=== PATIENT | male | born 1960 | race Hispanic/Latino ===

== ENCOUNTER → 2023-08-07 | Emergency (ER) | payer OTHER ==
[2023-08-07 19:03] LABS: Absolute Lymphocytes (CBC) 1.5 K/uL (0.7-4.9); Hematocrit 28.6 % (39.6-49.0); MCV 89.1 fL (80-100); MPV 7.9 fL (7.6-11.3); Platelets 226 thou/uL (152-406); RBC Red Blood Cell Count 3.21 M/uL (4.33-5.43)
[2023-08-07 19:22] LABS: Protime INR 1.17
[2023-08-07 19:33] LABS: Albumin 2.7 g/dL (3.4-5.0); Bilirubin Direct 0.2 mg/dL (0-0.2); Bilirubin Indirect, Calculated 0.5 mg/dL (0.2-0.8); Bilirubin Total 0.7 mg/dL (0.2-1.0); Magnesium 2.7 mg/dL (1.6-2.4); Potassium 3.7 mEq/L (3.5-5.1); Protein, Total 8.5 g/dL (6.4-8.2); Troponin High Sensitivity 13.5 pg/mL (<58.9)
--- NOTE | 2023-08-07 19:38 | EDPHYS ---
Physician Documentation [facility] Name: Lewis Sen Age: 63 yrs Sex: Male : 1960 Arrival Date: 08/07/2023 Time: 18:30 Bed 6 Private MD: ED Physician Srinivasan Avila HPI: 08/07 19:27 This 63 yrs old Male presents to ER via EMS with complaints of Hand to chest x sp3 1. 19:27 63-year-old male with history of prior CVA, diabetes, GERD presents via EMS from the [facility] retirement for him clutching his chest x 1 after his tube feed. Patient is no longer having these behaviors. Patient is nonverbal and therefore history, physical and ROS are severely limited. No reports of respiratory distress, new weakness, or any other strange behaviors reported by EMS or reported by staff to EMS.. - Immunization history:: Adult Immunizations up to date. - Social history:: Smoking status: Patient denies any tobacco usage or history of. Patient/guardian denies using alcohol. ROS: 19:29 Unable to obtain ROS due to baseline dementia, patient's inability to understand sp3 questions, Exam: 19:29 Constitutional: This is a well developed, well nourished patient who is awake, alert, sp3 and in no acute distress. Head/Face: Normocephalic, atraumatic. Eyes: Pupils equal round and reactive to light, extra-ocular motions intact. Lids and lashes normal. Conjunctiva and sclera are non-icteric and not injected. Cornea within normal limits. Periorbital areas with no swelling, redness, or edema. Neck: Trachea midline, no thyromegaly or masses palpated, and no cervical lymphadenopathy. Supple, full range of motion without nuchal rigidity, or vertebral point tenderness. No Meningismus. Chest/axilla: Normal chest wall appearance and motion. Nontender with no deformity. No lesions are appreciated. Cardiovascular: Regular rate and rhythm with a normal S1 and S2. No gallops, murmurs, or rubs. Normal PMI, no JVD. No pulse deficits. Respiratory: Lungs have equal breath sounds bilaterally, clear to auscultation and percussion. No rales, rhonchi or wheezes noted. No increased work of breathing, no retractions or nasal flaring. Abdomen/GI: Soft, non-tender, with normal bowel sounds. No distension or tympany. No guarding or rebound. No evidence of tenderness throughout. MS/ Extremity: Pulses equal, no cyanosis. Neurovascular intact. Full, normal range of motion. 19:29 Neuro: Chronic left-sided deficits. Very limited exam., 19:30 ECG was reviewed by the Attending Physician. EKG demonstrates normal sinus rhythm at 74 sp3 bpm with normal intervals except QTc at 461, normal axis, normal QRS, normal axis ST segments without evidence of acute ischemia. Vital Signs: 18:44 BP 148 / 78; Pulse 74; Resp 15; Temp 98; Pulse Ox 98% on 2 lpm NC; ko1 18:50 BP 130 / 73; Pulse 76; Resp 19; Pulse Ox 99% on 3 lpm NC; ld1 20:00 BP 139 / 82; Pulse 76; Resp 12 S; Pulse Ox 100% on 2 lpm NC; jw7 21:00 BP 122 / 78; Pulse 55; Resp 13 S; Pulse Ox 98% on 2 lpm NC; jw7 22:00 BP 137 / 83; Pulse 57; Resp 13 S; Pulse Ox 99% on 2 lpm NC; jw7 23:00 BP 133 / 66; Pulse 73; Resp 14 S; Pulse Ox 99% on R/A; jw7 MDM: 18:44 Patient medically screened. sp3 19:29 Data reviewed: vital signs, nurses notes, EMS record, old medical records, lab test sp3 result(s), EKG, radiologic studies. 19:30 ED course: 63-year-old male with 1 episode of his hand touching his chest at the sp3 retirement now currently resting in no acute distress with nonconcerning EKG. I am not highly suspicious for acute coronary syndrome and if laboratory values are within normal limits, we will safely discharge him home.. 19:36 ED course: Creatinine of 5.9 consistent with stage IV severe kidney disease. Hemoglobin sp3 9.9. No critical laboratory values noted. Troponin is negative. At this time we will discharge patient home to retirement.. 08/07 18:41 Order name: Basic Metabolic Panel; Complete Time: 19:34 sp3 08/07 18:41 Order name: CBC with Diff; Complete Time: 19:27 sp3 08/07 18:41 Order name: LFT's; Complete Time: 19:34 sp3 08/07 18:41 Order name: Magnesium; Complete Time: 19:34 sp3 08/07 18:41 Order name: NT PRO-BNP; Complete Time: 19:34 sp3 08/07 18:41 Order name: PT-INR; Complete Time: 19:27 sp3 08/07 18:41 Order name: Troponin HS; Complete Time: 19:34 sp3 08/07 18:41 Order name: XRAY Chest (1 view); Complete Time: 19:48 sp3 08/07 18:41 Order name: EKG; Complete Time: 18:41 sp3 08/07 18:41 Order name: Cardiac monitoring; Complete Time: 18:49 sp3 08/07 18:41 Order name: EKG - Nurse/Tech; Complete Time: 18:49 sp3 08/07 18:41 Order name: IV Saline Lock; Complete Time: 18:49 sp3 08/07 18:41 Order name: Labs collected and sent; Complete Time: 19:02 sp3 08/07 18:41 Order name: O2 Per Protocol; Complete Time: 18:41 sp3 08/07 18:41 Order name: O2 Sat Monitoring; Complete Time: 18:41 sp3 Administered Medications: No medications were administered Disposition Summary: 08/07/23 19:37 Discharge Ordered Notes: Location: Home sp3 Condition: Stable sp3 Diagnosis - Evaluation for hand to chest possible chest pain equivalent sp3 Followup: sp3 - With: Private Physician - When: Upon discharge from the Emergency Department - Reason: Continuance of care Discharge Instructions: - Discharge Summary Sheet sp3 - Chronic Kidney Disease, Adult sp3 Forms: - Medication Reconciliation Form sp3 - Thank You Letter sp3 - Antibiotic Education sp3 - Prescription Opioid Use sp3 - Patient Portal Instructions sp3 - Leadership Thank You Letter sp3 Signatures: Dispatcher [employer] Leia Kenney RN RN ld1 Srinivasan Avila MD MD sp3
--- NOTE | 2023-08-07 19:38 | ER ---
Nurse's Notes [facility] Name: Lewis Sen Age: 63 yrs Sex: Male : 1960 Arrival Date: 08/07/2023 Time: 18:30 Bed 6 Private MD: Diagnosis: Evaluation for hand to chest possible chest pain equivalent Presentation: 08/07 18:44 Chief complaint: EMS states: called by [facility] due to patient complaining of chest ko1 burning x 1 hour. Coronavirus screen: At this time, the client does not indicate any symptoms associated with coronavirus-19. Ebola Screen: No symptoms or risks identified at this time. Initial Sepsis Screen: Does the patient meet any 2 criteria? No. Patient's initial sepsis screen is negative. Does the patient have a suspected source of infection? No. Patient's initial sepsis screen is negative. Risk Assessment: Do you want to hurt yourself or someone else? Patient reports no desire to harm self or others. Onset of symptoms was August 07, 2023. Care prior to arrival: Medication(s) given: ASA, 81 mg, x 4, zofran 8 mg, IV initiated. 20 GA, in the right hand. 18:44 Method Of Arrival: EMS: [facility] ko1 18:44 Acuity: RUPAL 3 ko1 Triage Assessment: 18:44 General: Appears in no apparent distress. Behavior is calm, cooperative, appropriate ko1 for age. Pain: Complains of pain in chest. - Immunization history:: Adult Immunizations up to date. - Social history:: Smoking status: Patient denies any tobacco usage or history of. Patient/guardian denies using alcohol. Screenin:[facility] ED Fall Risk Assessment (Adult) History of falling in the last 3 months, ko1 including since admission No falls in past 3 months (0 pts) Confusion or Disorientation No (0 pts) Intoxicated or Sedated No (0 pts) Impaired Gait Yes (1 pt) Mobility Assist Device Used Yes (1 pt) Altered Elimination Yes (1 pt) Score/Fall Risk Level 3 or more points = High Risk Oriented to surroundings, Maintained a safe environment, Educated pt \T\ family on fall prevention, incl call for assistance when getting out of bed, Assessed \T\ reinforced patient's understanding of fall precautions, Provided non-skid footwear, Hourly rounding (assess needs \T\ fall precautionary measures) done, Used ambulatory aids as needed (educated on \T\ assisted with), Used gait belt as appropriate Remained w/in arm's length of patient and in sight while toileting, Offered frequent toileting (1:1 observation), Remained with patient while ambulating, Utilized family, sitter, or virtual meal room hand as indicated. Abuse screen: Denies threats or abuse. Denies injuries from another. Nutritional screening: No deficits noted. Tuberculosis screening: No symptoms or risk factors identified. Assessment: 18:57 Neuro: Level of Consciousness is awake, alert, obeys commands, left side flaccid from ko1 previous cva. Cardiovascular: Reports chest pain. Respiratory: No deficits noted. GI: PEG tube in place, clamped. Site clean. : Eldridge in place to gravity drainage. EENT: Oral mucosa is dry. Derm: No deficits noted. Musculoskeletal: Range of motion: limited in left side. 20:00 Reassessment: Patient appears in no apparent distress at this time. No changes from jw7 previously documented assessment. Patient and/or family updated on plan of care and expected duration. Pain level reassessed. 20:00 General: Attempted to call [facility] to arrange transport of patient, report jw7 given to Rae [facility] RN. . 20:00 General: Discharge pending transport to [facility]. jw7 21:00 Reassessment: Patient appears in no apparent distress at this time. No changes from jw7 previously documented assessment. Patient and/or family updated on plan of care and expected duration. Pain level reassessed. 22:00 Reassessment: Patient appears in no apparent distress at this time. No changes from jw7 previously documented assessment. Patient and/or family updated on plan of care and expected duration. Pain level reassessed. 23:18 Reassessment: Patient appears in no apparent distress at this time. No changes from jw7 previously documented assessment. Patient and/or family updated on plan of care and expected duration. Pain level reassessed. Vital Signs: 18:44 BP 148 / 78; Pulse 74; Resp 15; Temp 98; Pulse Ox 98% on 2 lpm NC; ko1 18:50 BP 130 / 73; Pulse 76; Resp 19; Pulse Ox 99% on 3 lpm NC; ld1 20:00 BP 139 / 82; Pulse 76; Resp 12 S; Pulse Ox 100% on 2 lpm NC; jw7 21:00 BP 122 / 78; Pulse 55; Resp 13 S; Pulse Ox 98% on 2 lpm NC; jw7 22:00 BP 137 / 83; Pulse 57; Resp 13 S; Pulse Ox 99% on 2 lpm NC; jw7 23:00 BP 133 / 66; Pulse 73; Resp 14 S; Pulse Ox 99% on R/A; jw7 ED Course: 18:40 Patient arrived in ED. ko1 18:40 Srinivasan Avila MD is Attending Physician. sp3 18:44 Griselda Gloria, RN is Primary Nurse. ko1 18:50 Arm band placed on right wrist. ld1 18:56 Triage completed. ko1 18:59 Patient has correct armband on for positive identification. Bed in low position. Call ko1 light in reach. Client placed on continuous cardiac and pulse oximetry monitoring. NIBP monitoring applied. clinical research monitor on. Door closed. Noise minimized. Warm blanket given. 18:59 Inserted saline lock: 22 gauge in right antecubital area, using aseptic technique. ko1 Blood collected. Oxygen administration via nasal cannula \T\ 2L/min. 19:31 XRAY Chest (1 view) In Process Unspecified. EDMS 20:26 No provider procedures requiring assistance completed. jw7 20:43 Provided Education on: discharge instructions. jw7 23:18 IV discontinued, intact, bleeding controlled, No redness/swelling at site. Pressure jw7 dressing applied. Administered Medications: No medications were administered Medication: 20:24 VIS not applicable for this client. as6 Outcome: 19:37 Discharge ordered by . sp3 23:15 Discharged to [facility]. jw7 23:15 Condition: stable 23:15 Discharge instructions given to patient, Instructed on discharge instructions, follow up and referral plans. Demonstrated understanding of instructions, follow-up care, 23:19 Patient left the ED. jw7 Signatures: Dispatcher [employer] EDMS Leia Bray RN RN ld1 Srinivasan Avila MD MD sp3 Conor Fragoso RN RN as6 Phyllis Moore RN RN jw7 Griselda Gloria, RN RN ko1 Corrections: (The following items were deleted from the chart) 20:42 20:00 General: Attempted to call [facility] to arrange transport of patient to [facility] [address] RN. . jw7 22:35 20:00 Reassessment: Patient appears in no apparent distress at this time. No changes jw7 from previously documented assessment. Patient and/or family updated on plan of care and expected duration. Pain level reassessed. Patient is alert, oriented x 3, equal unlabored respirations, skin warm/dry/pink. 7 :35 21:00 Reassessment: Patient appears in no apparent distress at this time. No changes jw7 from previously documented assessment. Patient and/or family updated on plan of care and expected duration. Pain level reassessed. Patient is alert, oriented x 3, equal unlabored respirations, skin warm/dry/pink. [facility] 22:37 20:00 BP 139 / 82; Pulse 76bpm; Resp 12bpm; Spontaneous; Pulse Ox 100% RA; jw7 jw7
--- NOTE | 2023-08-07 19:40 | RAD REPORT ---
EXAM DESCRIPTION: Nahid Single View08/07/2023 7:29 pm CLINICAL HISTORY: Chest pain COMPARISON: none FINDINGS: The lungs appear clear of acute infiltrate. The heart is normal size IMPRESSION: No acute abnormalities displayed
[2023-08-08 05:09] VITALS: TEMP 98
[2023-08-08 05:19] VITALS: BP 133/66; O2SAT 99
--- NOTE | 2023-08-09 13:27 | EKG ---
Test Date: 2023-08-07 Test Time: 18:47:17 Transport Coordinator: Kamran SI MEASUREMENT RESULTS: Intervals: Rate: 74 NV: 124 QRSD: 104 QT: 416 QTc: 461 [place]: P: 68 NV: 124 QRS: -6 T: 57 INTERPRETIVE STATEMENTS: Normal sinus rhythm Incomplete right bundle branch block Nonspecific ST abnormality Abnormal ECG No previous ECG available for comparison Electronically Signed On 08-09-23 13:24:05 ELECTRICIAN MAINTENANCE by Oscar Jiménez
== END ==
LOC: ER 18:30
DX: R07.89 Other chest pain (principal); E11.9 Type 2 diabetes mellitus without complications; F03.90 Unspecified dementia, unspecified severity, without behavioral disturbance, psychotic disturbance, mood disturbance, and anxiety; K21.9 Gastro-esophageal reflux disease without esophagitis; Z86.73 Personal history of transient ischemic attack (TIA), and cerebral infarction without residual deficits
CPT/HCPCS: 36415; 71045; 80048; 80076; 83735; 83880; 84484; 85025; 85610; 93005; 99285

== ENCOUNTER 2023-10-04 16:39 | Inpatient (IN) | payer OTHER ==
[2023-10-04] MEDS ORDERED: NA CHLORIDE 0.9% 0 ML ONE (16:54)
[2023-10-04] MEDS ORDERED: NOREPINEPHRINE BITARTRATE/D5W 4 MG/250 ML BAG IV ONE ×3 (16:58→21:33)
[2023-10-04] MEDS ORDERED: NA CHLORIDE 0.9% 1,000 ML ONE ×2 (16:58→22:39)
[2023-10-04 17:06] LABS: Absolute Lymphocytes (CBC) 0.3 K/uL (0.7-4.9); Basophils % 0.1 % (0-1.3); Eosinophils % 0.2 % (0-4.4); Hematocrit 19.6 % (39.6-49.0); Hemoglobin 6.8 g/dL (13.6-17.9); Lymphocytes % 3.6 % (15.3-44.8); MCV 87.2 fL (80-100); Platelets 208 thou/uL (152-406); RBC Red Blood Cell Count 2.25 M/uL (4.33-5.43)
[2023-10-04 17:10] LABS: Protime INR 1.25
--- NOTE | 2023-10-04 17:19 | RAD REPORT ---
EXAM DESCRIPTION: CT - Ct Stroke Brain Wo Cont - 10/04/2023 5:06 pm CLINICAL HISTORY: STROKE ALERT COMPARISON: No comparisons TECHNIQUE: All CT scans are performed using dose optimization technique as appropriate and may inclu de automated exposure control or mA/KV adjustment according to patient size. FINDINGS: No intracranial hemorrhage, hydrocephalus or extra-axial fluid collection.No areas of brai n edema or evidence of midline shift. Remote appearing right frontal lobe, right thalamic, and right camacho radiata infarcts. Mild chronic small vessel ischemic changes . The paranasal sinuses and mastoids are clear. The calvarium is intact. IMPRESSION: No acute intracranial abnormality. Remote appearing right cerebral hemisphere infarct. D iscussed with Dr. Bray by Dr. Desai at 1643 on 10/04/23
[2023-10-04 17:20] LABS: Albumin 2.1 g/dL (3.4-5.0); Albumin/Globulin Ratio 0.5 (1.1-1.8); Bilirubin Total 0.6 mg/dL (0.2-1.0); Protein, Total 6.1 g/dL (6.4-8.2); Troponin High Sensitivity 5.6 pg/mL (<58.9)
[2023-10-04] MEDS ORDERED: KCL 20 MEQ/100 mL IVPB 100 ML IV ONE (17:28)
--- NOTE | 2023-10-04 17:44 | RAD REPORT ---
EXAM DESCRIPTION: RAD - Chest Single View - 10/04/2023 5:34 pm CLINICAL HISTORY: hypotension COMPARISON: Chest Single View dated 09/30/2023; Chest Single View dated 08/07/2023; Ct Stroke Brain Wo Cont dated 10/04/2023 FINDINGS: Lines: Right IJ approach central line with tip at the SVC. Lungs: No evidence of edema or pneumonia. Pleural: No significant pleural effusions or pneumothorax. Cardiac: Enlarged cardiopericardial silhouette. Mediastinum: Within normal limits. Bones: No acute fractures. Other: None IMPRESSION: No acute cardiopulmonary disease.
[2023-10-04] MEDS ORDERED: ONDANSETRON 4 MG/2 ML VIAL ONE ×2 (17:58→20:09)
[2023-10-04] MEDS ORDERED: VANCOMYCIN 1 GM/VIAL ONE (17:58)
[2023-10-04] MEDS ORDERED: CEFEPIME 2 GM VIAL ONE (17:59)
[2023-10-04] MEDS ORDERED: NA CHLORIDE 0.9% 100 ML ONE (17:59)
[2023-10-04] MEDS ORDERED: NA CHLORIDE 0.9% 250 ML ONE ×2 (17:59→19:39)
[2023-10-04] MEDS ORDERED: HYDROCORTISONE SUC 100 MG INJ ONE (18:12)
[2023-10-04] MEDS ORDERED: VASOPRESSIN 80 UNIT in NA CHLORIDE 0.9% 250 ML IV SCH (19:00)
--- NOTE | 2023-10-04 19:13 | RAD REPORT ---
EXAM DESCRIPTION: CTAbdomen Pelvis Wo Contrast - 10/04/2023 7:00 pm CLINICAL HISTORY: ABD PAIN COMPARISON: No comparisons TECHNIQUE: CT of the abdomen and pelvis was performed. All CT scans are performed using dose optimization technique as appropriate and may include automated exposure control or mA/KV adjustment according to patient size. FINDINGS: Lower chest: Dependent atelectasis and/or mild pneumonitis. Small benign-appearing nodular density along the right hemidiaphragm. Fluid present within the distal esophagus which is circumfere ntially thickened. Liver: No acute abnormality or suspicious lesions. Biliary: Cholelithiasis with gallbladder wall thickening and distention. Stomach: Gastrostomy tube Duodenum: No significant focal abnormality. Pancreas: No significant abnormality. Spleen: No significant abnormality. Adrenal: No suspicious lesions. Kidney/ureter: Bilateral hydroureteronephrosis. No renal calculi. Retroperitoneum: No retroperitoneal adenopathy. Vascular: No aneurysm. Bowel: No bowel obstruction. No appendicitis.. Peritoneum: No ascites or free air. Bladder: Distended bladder with bladder gas. The wall is thickened. Eldridge catheter present. Reproductive: No adnexal masses. Bones: No acute fracture. Other: n/a IMPRESSION: 1. Distended bladder which is thickened with bilateral hydroureteronephrosis concerning for acute urinary retention. Eldridge catheter has been placed though the bladder remains distended. Per ivesical stranding may reflect cystitis. 2. Cholelithiasis with gallbladder wall thickening. This could reflect acute cholecystitis in the flo ropriate clinical setting. 3. Fluid present within the distal esophagus may reflect gastroesophageal reflux and could predispose to aspiration. The patient has a gastrostomy tube.
--- NOTE | 2023-10-04 19:32 | ER ---
Nurse's Notes [facility] Name: Lewis Sen Age: 63 yrs Sex: Male : 1960 Arrival Date: 10/04/2023 Time: 16:39 Bed 4 Private MD: Diagnosis: Severe sepsis with septic shock;UTI/ Urinary tract infection, site not specified;Hypokalemia;Anemia, unspecified;Altered mental status, unspecified Presentation: 10/03 16:57 Chief complaint: EMS states: Toned out for unresponsive. 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 Last known normal unknown. Coronavirus screen: At this time, the client does not indicate any symptoms associated with coronavirus-19. Ebola Screen: No symptoms or risks identified at this time. Initial Sepsis Screen: Does the patient meet any 2 criteria? Mean Arterial Pressure (MAP) < 65. Altered Mental Status. Yes Does the patient have a suspected source of infection? No. Patient's initial sepsis screen is negative. Risk Assessment: Do you want to hurt yourself or someone else? Patient reports no desire to harm self or others. Onset of symptoms is unknown. 16:57 Method Of Arrival: EMS: [facility] 16:57 Acuity: RUPAL 2 hb 17:02 Activity prior to arrival: confused. Transition of care: patient was received from another setting of care (long-term care facility), [facility]. Triage Assessment: 17:00 General: Appears ill, Behavior is minimally responsive. Pain: Unable to use pain scale. FLACC scale score is 2 out of 10. Neuro: Level of Consciousness is obtunded, Oriented to person. Cardiovascular: Patient's skin is warm and dry. Respiratory: Respiratory effort is even, unlabored, Respiratory pattern is regular, symmetrical. Historical: - Allergies: 16:59 No Known Allergies; - Home Meds: 18:39 amlodipine 10 mg tablet 1 tab once [Active]; atorvastatin 40 mg oral tablet 1 tab once mb9 [Active]; carvedilol 25 mg oral tablet 1 tab 2 times per day [Active]; ferrous sulfate 325 mg (65 mg iron) Oral tablet [Active]; hydralazine 50 mg Oral tablet 1 tab once [Active]; Humulin 70/30 U-100 Insulin 100 unit/mL (70-30) Sub-Q suspension [Active]; Jardiance 10 mg oral tablet 1 tab once [Active]; tamsulosin 0.4 mg oral capsule 1 cap once [Active]; - PMHx: 16:59 Cerebrovascular accident; diabetes mellitus; Hypertensive disorder; hb 18:31 chronic kidney disease; Dyshagia; Neuropathic bladder; Muscle wasting and atrophy; mb9 Glaucoma; 18:39 Anemia; BPH; mb9 - PSHx: 18:39 Unable to Obtain; mb9 - Immunization history:: Adult Immunizations unknown. - Social history:: Smoking status: unknown. Screenin:35 [facility] ED Fall Risk Assessment (Adult) History of falling in the last 3 months, ph including since admission No falls in past 3 months (0 pts) Confusion or Disorientation Yes (5 pts) Intoxicated or Sedated No (0 pts) Impaired Gait Yes (1 pt) Mobility Assist Device Used Yes (1 pt) Altered Elimination Yes (1 pt) Score/Fall Risk Level 3 or more points = High Risk Oriented to surroundings, Maintained a safe environment, Hourly rounding (assess needs \\T\\ fall precautionary measures) done, Used ambulatory aids as needed (educated on \\T\\ assisted with). Abuse screen: Denies threats or abuse. Denies injuries from another. Nutritional screening: No deficits noted. Tuberculosis screening: No symptoms or risk factors identified. Assessment: 16:41 Reassessment: CODE STROKE CALLED, PT TO CT ON EMS STRETCHER WITH EMS CREW AND DEBORAH jacobo RN. 17:03 General: Appears distressed. Pain: Unable to use pain scale. Does not appear to mb9 understand pain scale. Neuro: Bowen Agitation-Sedation Scale (RASS): -3 Moderate Sedation Level of Consciousness is lethargic, Oriented to none. Cardiovascular: Patient's skin is warm and dry. Respiratory: Airway is patent Respiratory effort is even, unlabored. GI: PEG tube. : Eldridge in place Urine is cloudy. EENT: No signs and/or symptoms were reported regarding the EENT system. Derm: Skin is pink, warm \\T\\ dry. Musculoskeletal: Range of motion: limited in all extremities. 17:51 GI: Stools are reported to be normal. mb9 18:00 Reassessment: No changes from previously documented assessment. Patient and/or family mb9 updated on plan of care and expected duration. Pain level reassessed. airway is patent. 18:35 Reassessment: VO from Dr. Bray to hold Vasopressin due to BP. mb9 19:00 Reassessment: No changes from previously documented assessment. Patient and/or family mb9 updated on plan of care and expected duration. Pain level reassessed. airway is patent. 19:30 Reassessment: Consent for RBC signed by ERP and this nurse and JIN Gary. mb9 20:00 Reassessment: No changes from previously documented assessment. Patient and/or family mb9 updated on plan of care and expected duration. Pain level reassessed. Airway is patent. Pt currently vomiting. ERP notified. 20:00 Reassessment: vomiting yellow secretions notified Dr. Shah. ha1 20:35 Reassessment: Patient and/or family updated on plan of care and expected duration. Pain ha1 level reassessed. PT. STATED " I DO NOT FEEL NAUSEA ANY MORE" Patient states feeling better. Patient states symptoms have improved. 20:52 Reassessment: Sister at bedside. mb9 21:00 Reassessment: No changes from previously documented assessment. Patient and/or family mb9 updated on plan of care and expected duration. Pain level reassessed. airway is patent, Respirations are even and unlabored. 22:00 General: Appears comfortable, Behavior is calm. Neuro: Level of Consciousness is awake, ha1 Oriented to person. Respiratory: Airway is patent Respiratory effort is even, unlabored, Respiratory pattern is regular, symmetrical. 23:00 Reassessment: COMPLETED BLOOD TRANSFUSION. NO ADVERSE REACTION. ha1 23:00 Respiratory: Airway is patent Respiratory effort is even, unlabored, Respiratory ha1 pattern is regular, symmetrical. Vital Signs: 16:56 Pulse Ox 94% on R/A; Weight 81.65 kg; Height 5 ft. 9 in. ; mb9 16:57 BP 59 / 39; Pulse 66; Resp 18; Temp 97.5(A); Pulse Ox 98% on R/A; hb 17:05 BP 81 / 39; Pulse 50; Resp 18; Pulse Ox 94% on R/A; mb9 17:11 BP 65 / 45; Pulse 48; Resp 14; Pulse Ox 97% on R/A; mb9 17:31 BP 76 / 41; Pulse 64; Resp 30; Pulse Ox 96% ; mb9 18:00 BP 84 / 39; Pulse 70; Resp 22; Pulse Ox 97% on 3 lpm NC; mb9 18:15 BP 93 / 44; Pulse 76; Resp 26; Temp 97.5(O); Pulse Ox 98% on 3 lpm NC; mb9 18:22 BP 97 / 43; Pulse 77; Resp 24; Pulse Ox 97% on 3 lpm NC; mb9 18:30 BP 97 / 46; Pulse 79; Resp 22; Pulse Ox 97% on 3 lpm NC; mb9 18:35 BP 102 / 48; Pulse 78; Resp 22; Pulse Ox 98% on 3 lpm NC; mb9 18:42 BP 113 / 46; Pulse 79; Resp 18; Pulse Ox 97% on 3 lpm NC; mb9 19:15 BP 120 / 54; Pulse 78; Resp 24; Pulse Ox 97% on 3 lpm NC; mb9 19:30 BP 109 / 56; Pulse 78; Resp 22; Temp 95.4(Ca); Pulse Ox 99% on R/A; ha1 20:07 BP 100 / 62; Pulse 73; Resp 20; Pulse Ox 100% on R/A; mb9 20:29 BP 94 / 47; Pulse 74; Resp 18; Temp 95.7(core temp); Pulse Ox 98% on R/A; mb9 20:51 BP 106 / 51; Pulse 75; Resp 17 S; Pulse Ox 96% on R/A; ha1 21:00 BP 114 / 38; Pulse 76; Resp 18 S; Pulse Ox 98% on R/A; ha1 21:10 BP 121 / 64; Pulse 76; Resp 17 S; Pulse Ox 98% on R/A; ha1 21:20 BP 114 / 63; Pulse 76; Resp 17 S; Pulse Ox 98% on R/A; ha1 21:30 BP 123 / 49; Pulse 77; Resp 17 S; Temp 96(Ca); Pulse Ox 98% on R/A; ha1 21:45 BP 110 / 50; Pulse 81; Resp 17 S; Pulse Ox 99% on R/A; ha1 22:00 BP 102 / 51; Pulse 80; Resp 17 S; Pulse Ox 98% on R/A; ha1 22:10 BP 106 / 55; Pulse 82; Resp 17 S; Temp 97.3(Ca); Pulse Ox 98% on R/A; ha1 22:35 BP 101 / 49; Pulse 77; Resp 17 S; Temp 97.2; Pulse Ox 98% on R/A; ha1 22:50 BP 102 / 51; Pulse 78; Resp 17 S; Pulse Ox 98% on R/A; ha1 23:05 BP 104 / 47; Pulse 78; Resp 17 S; Pulse Ox 98% on R/A; ha1 23:22 BP 105 / 49; Pulse 78; Resp 17 S; Pulse Ox 98% on R/A; ha1 23:41 BP 107 / 52; Pulse 86; Resp 17 S; Temp 98.8(Ca); Pulse Ox 98% on R/A; ha1 16:56 Body Mass Index 26.58 (81.65 kg, 175.26 cm) mb9 ED Course: 15:00 Initial lab(s) drawn, EKG done, by ED staff, reviewed by Juan Jose Bray DO. Oxygen ph administration via nasal cannula \\T\\ 2L/min Response to oxygen therapy: symptoms improved. 15:15 Assisted provider with central line placement. Set up central line tray. Triple lumen mb9 line placed in right internal jugular. Line placed by Juan Jose Bray DO Placement verified by CXR, blood return, Dressed with Tegaderm, Blood was collected. Patient tolerated well. Before procedure, did Practitioner(s) obtain informed consent? No. Patient \\T\\ family education about procedure, CLABSI prevention and S/S of infection? Yes. Time-out/Briefing performed prior to start of procedure? Yes. Was handwashing/sanitizing done immediately prior to procedure? Yes. Was patient positioned to in a way to prevent air embolism? Yes. Was procedure site sterilized? Yes, with chlorhexidine. Was the site allowed to dry? Yes. Was local anesthetic and/or sedation utilized? Yes. During the procedure, did the Practitioner(s) maintain a sterile field? Yes. Were unused ports clamped during insertion? Yes. Was a 2nd qualified MD obtained after 3 unsuccessful insertion attempts? N/A. Was blood aspirated from each lumen? Yes. After the procedure, did the Practitioner(s) clean the site and apply a sterile dressing? Yes. 16:41 RN/CASTING SORTER escort patient out of department to CT scan. hb 16:42 Patient arrived in ED. hb 16:49 Juan Jose Bray DO is Attending Physician. ms3 16:49 connected Aarti Calles patient sister with Dr. Bray / Her cell is [phone]. eb 16:49 Family notified that patient is in ED. mb9 16:54 Shanel Leos, RN is Primary Nurse. ph 16:59 Triage completed. hb 17:00 Client placed on continuous cardiac and pulse oximetry monitoring. NIBP monitoring hb applied. manager managing on. Pulse ox on. NIBP on. 17:03 Yamile Chavez, RN is Primary Nurse. mb9 17:05 Inserted saline lock: 18 gauge in right forearm, using aseptic technique. mb9 17:06 Ct Stroke Brain Wo Cont In Process Unspecified. EDMS 17:06 Placed in gown. Bed in low position. Call light in reach. Side rails up X 1. mb9 17:10 Maintain EMS IV. Dressing intact. Good blood return noted. Site clean \\T\\ dry. Gauge \\T\\ mb 9 site: left FA. 17:11 Primary Nurse role handed off by Yamile Chavez, JIN ph 17:11 Shanel Leos, RN is Primary Nurse. ph 17:30 Primary Nurse role handed off by Shanel Leos, JIN mb9 17:30 Yamile Chavez, RN is Primary Nurse. mb9 17:36 Chest Single View XRAY In Process Unspecified. EDMS 17:36 Arm band placed on Patient placed in an exam room, on a stretcher, on oxygen, on ph sql server dba developer, on pulse oximetry. 17:51 Repositioned patient. Cleaned of incontinence. Linen changed. mb9 18:29 Warm blanket given. One-on-one care X 45 minutes. mb9 18:[address] via stretcher. mb9 19:01 CT Abd/Pelvis - Without Contrast In Process Unspecified. EDMS 19:15 Patient moved back from CT. mb9 19:15 Urine collected: Eldridge catheter specimen, cloudy, sediment noted. mb9 19:20 Lab(s) recollected, by me, sent to lab. T\\T\\S collected, blood band applied to patient. mb9 19:25 One-on-one care X 15 minutes. mb9 19:29 Rajesh Parra MD is Hospitalizing Provider. ms3 19:30 ED physician to see patient. mb9 19:35 Warm blanket given. BEAR HUGGER APPLIED TO IMPROVED TEMPERATURE LEVEL. ha1 19:35 Eldridge cath inserted, using sterile technique, 16 Fr., by ED staff, balloon inflated, to mb9 gravity drainage, urine specimen collected. returned cloudy urine. Patient tolerated well. 19:52 US Abdomen Limited In Process Unspecified. EDMS 20:00 Provided Education on: Blood Transfusion. mb9 20:00 Repositioned patient. mb9 20:00 Lights dimmed. mb9 20:06 Notified ED physician of a critical lab result(s). lactate 6.7. mb9 20:30 Thermoregulation: warm blanket given to patient. Rach blanket applied. mb9 20:51 One-on-one care X 15 minutes. mb9 20:53 Patient admitted, IV remains in place. mb9 22:03 Report given to Cecil RN. mb9 Administered Medications: 17:03 Drug: NS 0.9% IV (30 ml/kg) 30 ml/kg IV at bolus once; Sepsis Protocol Route: IV; Rate: mb9 bolus; Site: right forearm; 18:30 Follow up: Response: No adverse reaction; IV Status: Completed infusion mb9 17:03 Drug: Norepinephrine IV 0.1 mcg/kg/min IV at calculated rate See Administration mb9 Instructions; (Standard concentration 4 mg / 250 mL D5W); Recommended max rate 3 mcg/kg/min; Titrate 0.05 mcg/kg/min as often as every 5 minutes to achieve goal (see titration policy); Goal parameter MAP greater than 65 mmHg. Route: IV; Rate: calculated rate; Site: right forearm; 20:53 Follow up: Response: No adverse reaction; IV Status: Infusion continued upon admission mb9 23:35 Follow up: Response: No adverse reaction; IV Status: Infusion continued ha1 17:26 CANCELLED (Duplicate Order): epinephrine (pf)0.01 mcg/kg/min IV at calculated rate See ph Administration Instructions; Standard concentration 4 mg / 250 mL D5W; Recommended max rate 2 mcg/kg/min; Titrate 0.01 mcg/kg/min as often as every 3 minutes to achieve goal [see titration policy]; Goal parameter MAP greater than 65 mmHg. 17:50 Drug: EPINEPHrine (PF) IV 0.01 mcg/kg/min IV at calculated rate See Administration mb9 Instructions; Standard concentration 4 mg / 250 mL D5W; Recommended max rate 2 mcg/kg/min; Titrate 0.01 mcg/kg/min as often as every 3 minutes to achieve goal [see titration policy]; Goal parameter MAP greater than 65 mmHg. Route: IV; Rate: calculated rate; Site: right subclavian; 20:53 Follow up: Response: No adverse reaction; IV Status: Infusion continued upon admission mb9 23:35 Follow up: Response: No adverse reaction; IV Status: Infusion continued ha1 18:10 Drug: Ondansetron IVP 4 mg IVP once; over 2 minutes Route: IVP; Site: right forearm; mb9 18:30 Follow up: Response: No adverse reaction mb9 18:11 Drug: Cefepime IVPB 2 grams IVPB at 200 ml/hr once over 30 mins; (mix in NS 100 mL) mb9 Route: IVPB; Rate: 200 ml/hr; Infused Over: 30 mins; Site: right forearm; 19:30 Follow up: Response: No adverse reaction; IV Status: Completed infusion mb9 18:11 Drug: vancoMYCIN IVPB 1 grams IVPB once over 2 hrs Route: IVPB; Infused Over: 2 hrs; mb9 Site: left hand; 20:53 Follow up: Response: No adverse reaction; IV Status: Completed infusion mb9 18:16 Drug: Solu-CORTEF IVP 100 mg IVP once Route: IVP; Site: right forearm; mb9 18:57 Follow up: Response: No adverse reaction mb9 18:20 Drug: Potassium Chloride IV 40 mEq IV at calculated rate once; administer over 2-4 ha1 hours {Note: DMINISTERED BY MARYAN .} Route: IV; Rate: calculated rate; Site: right forearm; 21:00 Follow up: Response: No adverse reaction; IV Status: Completed infusion ha1 20:12 Drug: Ondansetron IVP 4 mg IVP once; over 2 minutes Route: IVP; Site: left forearm; mb9 20:47 Follow up: Response: No adverse reaction mb9 23:26 Not Given (Physician Discretion): vasopressin0.02 units/min IV at calculated rate ha1 continuous; Titrate for map of 65 mm/ Hg Medication: 17:36 VIS not applicable for this client. ph Outcome: 19:32 Decision to Hospitalize by Provider. ms3 23:41 Condition: stable ha1 23:41 Admitted to ICU accompanied by nurse, family with patient, via stretcher, room 1, with ha1 chart, Report called to JIN BOYD 23:41 Discharge instructions given to family, Instructed on the need for admit, Demonstrated understanding of instructions, 23:42 Patient left the ED. ha1 Signatures: Dispatcher [employer] EDMS Shanel Leos RN RN Deborah Baptiste RN RN hb Botello, Elizabeth eb Sims, Marcus, DO DO ms3 Cookie Velazquez RN RN ha1 Yamile Chavez RN RN mb9 Corrections: (The following items were deleted from the chart) 17:51 15:15 Assisted provider with central line placement. Set up central line tray. Triple mb9 lumen line placed in left internal jugular. Line placed by Juan Jose Bray DO Placement verified by CXR, blood return, Dressed with Tegaderm, Blood was collected. Patient tolerated well. Before procedure, did Practitioner(s) obtain informed consent? No. Patient \\T\\ family education about procedure, CLABSI prevention and S/S of infection? Yes. Time-out/Briefing performed prior to start of procedure? Yes. Was handwashing/sanitizing done immediately prior to procedure? Yes. Was patient positioned to in a way to prevent air embolism? Yes. Was procedure site sterilized? Yes, with chlorhexidine. Was the site allowed to dry? Yes. Was local anesthetic and/or sedation utilized? Yes. During the procedure, did the Practitioner(s) maintain a sterile field? Yes. Were unused ports clamped during insertion? Yes. Was a 2nd qualified MD obtained after 3 unsuccessful insertion attempts? N/A. Was blood aspirated from each lumen? Yes. After the procedure, did the Practitioner(s) clean the site and apply a sterile dressing? Yes. ph 20:07 20:00 Reassessment: No changes from previously documented assessment. Patient and/or mb9 family updated on plan of care and expected duration. Pain level reassessed. Airway is patent mb9 20:36 20:29 Pulse 74bpm; Resp 18bpm; Pulse Ox 98% RA; Temp 95.7F core temp; mb9 mb9 20:38 20:29 BP 84 / 47; Pulse 74bpm; Resp 18bpm; Pulse Ox 98% RA; Temp 95.7F core temp; mb9 mb9 22:22 19:30 BP 109 / 56; Pulse 78bpm; Resp 22bpm; Pulse Ox 99% RA; 9 ha1 22:23 19:35 BP 109 / 56; Pulse 78bpm; Resp 22bpm; Pulse Ox 99% RA; Temp 95.4F Catheter; ha1 ha1 23:00 22:10 BP 106 / 55; Pulse 82bpm; Resp 17bpm; Spontaneous; Pulse Ox 98% RA; Temp 93.3F ha1 Catheter; ha1
--- NOTE | 2023-10-04 19:32 | EDPHYS ---
Physician Documentation [facility] Name: Lewis Sen Age: 63 yrs Sex: Male : 1960 Arrival Date: 10/04/2023 Time: 16:39 Bed 4 Private MD: ED Physician Juan Jose Bray HPI: 10/03 17:37 This 63 yrs old Male presents to ER via EMS with complaints of Altered [facility] [place]. 17:43 63-year-old male with past medical history of CVA, diabetes, hypertension [facility] [place] [facility] [place] [facility] for altered mental status. EMS notes nursing facility states they found patient in this condition 30 minutes prior to arrival. Time of onset is unknown.. Historical: - Allergies: 16:59 No Known Allergies; hb - Home Meds: 18:39 amlodipine 10 mg tablet 1 tab once [Active]; atorvastatin 40 mg oral tablet 1 tab once mb9 [Active]; carvedilol 25 mg oral tablet 1 tab 2 times per day [Active]; ferrous sulfate 325 mg (65 mg iron) Oral tablet [Active]; hydralazine 50 mg Oral tablet 1 tab once [Active]; Humulin 70/30 U-100 Insulin 100 unit/mL (70-30) Sub-Q suspension [Active]; Jardiance 10 mg oral tablet 1 tab once [Active]; tamsulosin 0.4 mg oral capsule 1 cap once [Active]; - PMHx: 16:59 Cerebrovascular accident; diabetes mellitus; Hypertensive disorder; hb 18:31 chronic kidney disease; Dyshagia; Neuropathic bladder; Muscle wasting and atrophy; mb9 Glaucoma; 18:39 Anemia; BPH; mb9 - PSHx: 18:39 Unable to Obtain; mb9 - Immunization history:: Adult Immunizations unknown. - Social history:: Smoking status: unknown. ROS: 17:43 Unable to obtain ROS due to altered mental status, ri3 Exam: 17:43 Head/Face: Normocephalic, atraumatic. ms3 17:43 Constitutional: The patient appears frail, obviously ill, 17:43 Neck: External neck: is normal, no acute changes, 17:43 Musculoskeletal/extremity: Extremities: no acute changes, 17:43 Neuro: Orientation: to person, Mentation: responsive to voice 17:43 Respiratory: the patient does not display signs of respiratory distress, Respirations: ms3 normal, Breath sounds: rales, that are mild, are heard diffusely, 17:43 Abdomen/GI: Inspection: abdomen appears normal, Bowel sounds: normal, Palpation: soft, 17:56 ECG was reviewed by the Attending Physician. ms3 Vital Signs: 16:56 Pulse Ox 94% on R/A; Weight 81.65 kg; Height 5 ft. 9 in. ; mb9 16:57 BP 59 / 39; Pulse 66; Resp 18; Temp 97.5(A); Pulse Ox 98% on R/A; hb 17:05 BP 81 / 39; Pulse 50; Resp 18; Pulse Ox 94% on R/A; mb9 17:11 BP 65 / 45; Pulse 48; Resp 14; Pulse Ox 97% on R/A; mb9 17:31 BP 76 / 41; Pulse 64; Resp 30; Pulse Ox 96% ; mb9 18:00 BP 84 / 39; Pulse 70; Resp 22; Pulse Ox 97% on 3 lpm NC; mb9 18:15 BP 93 / 44; Pulse 76; Resp 26; Temp 97.5(O); Pulse Ox 98% on 3 lpm NC; mb9 18:22 BP 97 / 43; Pulse 77; Resp 24; Pulse Ox 97% on 3 lpm NC; mb9 18:30 BP 97 / 46; Pulse 79; Resp 22; Pulse Ox 97% on 3 lpm NC; mb9 18:35 BP 102 / 48; Pulse 78; Resp 22; Pulse Ox 98% on 3 lpm NC; mb9 18:42 BP 113 / 46; Pulse 79; Resp 18; Pulse Ox 97% on 3 lpm NC; mb9 19:15 BP 120 / 54; Pulse 78; Resp 24; Pulse Ox 97% on 3 lpm NC; mb9 19:30 BP 109 / 56; Pulse 78; Resp 22; Temp 95.4(Ca); Pulse Ox 99% on R/A; ha1 20:07 BP 100 / 62; Pulse 73; Resp 20; Pulse Ox 100% on R/A; mb9 20:29 BP 94 / 47; Pulse 74; Resp 18; Temp 95.7(core temp); Pulse Ox 98% on R/A; mb9 20:51 BP 106 / 51; Pulse 75; Resp 17 S; Pulse Ox 96% on R/A; ha1 21:00 BP 114 / 38; Pulse 76; Resp 18 S; Pulse Ox 98% on R/A; ha1 21:10 BP 121 / 64; Pulse 76; Resp 17 S; Pulse Ox 98% on R/A; ha1 21:20 BP 114 / 63; Pulse 76; Resp 17 S; Pulse Ox 98% on R/A; ha1 21:30 BP 123 / 49; Pulse 77; Resp 17 S; Temp 96(Ca); Pulse Ox 98% on R/A; ha1 21:45 BP 110 / 50; Pulse 81; Resp 17 S; Pulse Ox 99% on R/A; ha1 22:00 BP 102 / 51; Pulse 80; Resp 17 S; Pulse Ox 98% on R/A; ha1 22:10 BP 106 / 55; Pulse 82; Resp 17 S; Temp 97.3(Ca); Pulse Ox 98% on R/A; ha1 22:35 BP 101 / 49; Pulse 77; Resp 17 S; Temp 97.2; Pulse Ox 98% on R/A; ha1 22:50 BP 102 / 51; Pulse 78; Resp 17 S; Pulse Ox 98% on R/A; ha1 23:05 BP 104 / 47; Pulse 78; Resp 17 S; Pulse Ox 98% on R/A; ha1 23:22 BP 105 / 49; Pulse 78; Resp 17 S; Pulse Ox 98% on R/A; ha1 23:41 BP 107 / 52; Pulse 86; Resp 17 S; Temp 98.8(Ca); Pulse Ox 98% on R/A; ha1 16:56 Body Mass Index 26.58 (81.65 kg, 175.26 cm) mb9 Procedures: 17:24 Central Line: the site was prepped with Chlorohexadine, a triple lumen catheter was ms3 inserted, in the right internal jugular vein, in 1 attempts. placement was verified, by blood return, the site was dressed with Tegaderm, the patient tolerated the procedure, well. MDM: 16:49 Patient medically screened. ms3 17:28 Differential Diagnosis: CVA, electrolyte abnormality, hypoglycemia, intracranial bleed, ms3 pneumonia, seizure, sepsis, UTI. Management of patient was discussed with the following: Cash Register Mechanic: Discussed case with Dr. Mcwilliams. He agrees patient does not need TNKase at this time. Patient with hx of L sided deficits. Patient hypotensive at this time. CT Head shows old infarcts.. 18:00 ED course: Patient complaining of abdominal pain at this time. CT abd/pelvis without ms3 contrast ordered.. 18:02 ED course: Patient meets septic shock criteria at this time. Patient has received 30 ms3 ml/kg of IVF, Levophed and Epinepherine ggt started. Blood cultures completed. Cefepime and Vancomycin given. Sepsis re-assessment complete. Will continue to titrate pressors at this time. Patient Hgb 6.8. 1 unit PRBC ordered.. 18:13 ED course: sepsis re-evaluation complete. ms3 19:08 Independent interpretation of the following test(s) in the Emergency Department CT ms3 Scan: My interpretation is CT abdomen/Pelvis without contrast images reviewed reveal urinary retention. Will place new coronel catheter . 19:32 Data reviewed: vital signs, nurses notes, lab test result(s), EKG, radiologic studies, ms3 and as a result, I will admit patient. Consideration of Admission/Observation Patient was admitted/placed on observation. I considered the following discharge prescriptions or medication management in the emergency department Medications were administered in the Emergency Department. See MAR. Historians other than the Patient: EMS: [facility]. Care significantly affected by the following chronic conditions: Diabetes, Hypertension, Chronic Kidney Disease. Counseling: I had a detailed discussion with the patient and/or guardian regarding the historical points, exam findings, and any diagnostic results supporting the discharge/admit diagnosis, lab results, radiology results, the need for further work-up and treatment in the hospital. ED course: Discussed case with Dr. Ingram and he visited patient in the emergency department. Discussed admission with Dr. Parra accepts patient as admission to ICU. All questions were answered. Discussed necessity with patient for admission. Sepsis reevaluation completed. Patient's blood pressure responded to 100 mg hydrocortisone in addition to Levophed and epinephrine. Vasopressin was not started.. 10/03 17:42 Order name: Type And Screen ms3 10/03 16:56 Order name: Blood Culture Adult (2) ms3 10/03 16:56 Order name: CBC with Diff ms3 10/03 16:56 Order name: CMP; Complete Time: 17:25 ms3 10/03 16:56 Order name: Lactate w/ 2H reflex if indic.; Complete Time: 19:16 ms3 10/03 16:56 Order name: Protime (+inr); Complete Time: 17:25 ms3 10/03 16:56 Order name: Ptt, Activated; Complete Time: 17:25 ms3 10/03 16:56 Order name: Urinalysis w/ reflexes; Complete Time: 19:51 ms3 10/03 16:56 Order name: Troponin High Sensitivity; Complete Time: 17:25 ms3 10/03 17:05 Order name: Glucose, Ancillary Testing; Complete Time: 17:25 EDMS 10/03 17:42 Order name: Bb Add On ms3 10/03 18:48 Order name: ABO/RH no charge; Complete Time: 19:16 EDMS 10/03 18:50 Order name: Packed RBC Leukored EDMS 10/03 19:28 Order name: Lactate w/ 2H reflex if indic. mb9 10/03 19:46 Order name: Urine Culture EDMS 10/03 21:34 Order name: CBC Smear Scan EDMS 10/03 22:07 Order name: CBC with Automated Diff EDMS 10/03 22:07 Order name: CBC with Automated Diff EDMS 10/03 22:07 Order name: CBC with Automated Diff EDMS 10/03 22:07 Order name: CBC with Automated Diff EDMS 10/03 22:07 Order name: Comprehensive Metabolic Panel EDMS 10/03 22:07 Order name: Comprehensive Metabolic Panel EDMS 10/03 22:07 Order name: Comprehensive Metabolic Panel EDMS 10/03 22:07 Order name: Comprehensive Metabolic Panel EDMS 10/03 22:45 Order name: Lactate Sepsis 2 HR Follow-up EDMS 10/03 16:56 Order name: Chest Single View XRAY; Complete Time: 17:47 ms3 10/03 17:06 Order name: Ct Stroke Brain Wo Cont; Complete Time: 17:25 EDMS 10/03 17:59 Order name: CT Abd/Pelvis - Without Contrast; Complete Time: 19:16 ms3 10/03 19:15 Order name: US Abdomen Limited; Complete Time: 20:04 ms3 10/03 16:56 Order name: EKG; Complete Time: 16:57 ms3 10/03 22:07 Order name: CONS Physician Consult EDMS 10/03 16:56 Order name: Accucheck; Complete Time: 17:03 ms3 0308 16:56 Order name: Cardiac monitoring; Complete Time: 17:03 ms3 08 16:56 Order name: EKG - Nurse/Tech; Complete Time: 17:03 ms3 0308 16:56 Order name: IV Saline Lock - Large Bore; Complete Time: 17:03 ms3 0308 16:56 Order name: Labs collected and sent; Complete Time: 17:03 ms3 10/03 16:56 Order name: O2 Per Protocol; Complete Time: 17:03 ms3 08 16:56 Order name: O2 Sat Monitoring; Complete Time: 17:03 ms3 08 16:56 Order name: Vital Signs; Complete Time: 17:03 ms3 EC:56 Rate is 64 beats/min. Rhythm is regular. QRS [place] is Normal. [place] interval is normal. QRS ms3 interval is normal. Clinical impression: NSR w/ Non-specific ST/T Changes. Interpreted by me. Reviewed by me. Administered Medications: 17:03 Drug: NS 0.9% IV (30 ml/kg) 30 ml/kg IV at bolus once; Sepsis Protocol Route: IV; Rate: mb9 bolus; Site: right forearm; 18:30 Follow up: Response: No adverse reaction; IV Status: Completed infusion mb9 17:03 Drug: Norepinephrine IV 0.1 mcg/kg/min IV at calculated rate See Administration mb9 Instructions; (Standard concentration 4 mg / 250 mL D5W); Recommended max rate 3 mcg/kg/min; Titrate 0.05 mcg/kg/min as often as every 5 minutes to achieve goal (see titration policy); Goal parameter MAP greater than 65 mmHg. Route: IV; Rate: calculated rate; Site: right forearm; 20:53 Follow up: Response: No adverse reaction; IV Status: Infusion continued upon admission mb9 23:35 Follow up: Response: No adverse reaction; IV Status: Infusion continued ha1 17:26 CANCELLED (Duplicate Order): epinephrine (pf)0.01 mcg/kg/min IV at calculated rate See ph Administration Instructions; Standard concentration 4 mg / 250 mL D5W; Recommended max rate 2 mcg/kg/min; Titrate 0.01 mcg/kg/min as often as every 3 minutes to achieve goal [see titration policy]; Goal parameter MAP greater than 65 mmHg. 17:50 Drug: EPINEPHrine (PF) IV 0.01 mcg/kg/min IV at calculated rate See Administration mb9 Instructions; Standard concentration 4 mg / 250 mL D5W; Recommended max rate 2 mcg/kg/min; Titrate 0.01 mcg/kg/min as often as every 3 minutes to achieve goal [see titration policy]; Goal parameter MAP greater than 65 mmHg. Route: IV; Rate: calculated rate; Site: right subclavian; 20:53 Follow up: Response: No adverse reaction; IV Status: Infusion continued upon admission mb9 23:35 Follow up: Response: No adverse reaction; IV Status: Infusion continued ha1 18:10 Drug: Ondansetron IVP 4 mg IVP once; over 2 minutes Route: IVP; Site: right forearm; mb9 18:30 Follow up: Response: No adverse reaction mb9 18:11 Drug: Cefepime IVPB 2 grams IVPB at 200 ml/hr once over 30 mins; (mix in NS 100 mL) mb9 Route: IVPB; Rate: 200 ml/hr; Infused Over: 30 mins; Site: right forearm; 19:30 Follow up: Response: No adverse reaction; IV Status: Completed infusion mb9 18:11 Drug: vancoMYCIN IVPB 1 grams IVPB once over 2 hrs Route: IVPB; Infused Over: 2 hrs; mb9 Site: left hand; 20:53 Follow up: Response: No adverse reaction; IV Status: Completed infusion mb9 18:16 Drug: Solu-CORTEF IVP 100 mg IVP once Route: IVP; Site: right forearm; mb9 18:57 Follow up: Response: No adverse reaction mb9 18:20 Drug: Potassium Chloride IV 40 mEq IV at calculated rate once; administer over 2-4 ha1 hours {Note: DMINISTERED BY MARYAN .} Route: IV; Rate: calculated rate; Site: right forearm; 21:00 Follow up: Response: No adverse reaction; IV Status: Completed infusion ha1 20:12 Drug: Ondansetron IVP 4 mg IVP once; over 2 minutes Route: IVP; Site: left forearm; mb9 20:47 Follow up: Response: No adverse reaction mb9 23:26 Not Given (Physician Discretion): vasopressin0.02 units/min IV at calculated rate ha1 continuous; Titrate for map of 65 mm/ Hg Disposition: 19:35 Critical Care:. ms3 19:35 Chart complete. ms3 Disposition Summary: 10/04/23 19:32 Hospitalization Ordered Notes: Hospitalization Status: Inpatient Admission ms3 Provider: Rajesh Parra ms3 Location: Intensive Care Unit ms3 Condition: Stable ms3 Problem: new ms3 Symptoms: are unchanged ms3 Bed/Room Type: Standard ms3 Room Assignment: 1-(10/04/23 23:22) lg3 Diagnosis - Severe sepsis with septic shock ms3 - UTI/ Urinary tract infection, site not specified ms3 - Hypokalemia ms3 - Anemia, unspecified ms3 - Altered mental status, unspecified ms3 Forms: - Medication Reconciliation Form ms3 - SBAR form ms3 - Leadership Thank You Letter ms3 Critical care time excluding procedures: 19:35 Critical care time: Bedside Care: 60 minutes, Consultation: 10 minutes, Family ms3 Intervention: 5 minutes. Total time: 75 minutes Signatures: Dispatcher [employer] EDCT Shanel Leos RN RN Deborah Baptiste RN JIN Sarah Freeman RN RN lg3 Juan Jose Bray, DO ms3 Cookie Velazquez RN RN ha1 Yamile Chavez, RN RN mb9 Corrections: (The following items were deleted from the chart) 17:06 16:57 Head Brain Wo [id number].[id number] ordered. [facility] EDCT 17:26 17:25 EPINEPHrine (PF) IV 0.01 mcg/kg/min IV at calculated rate See Administration ph Instructions; Standard concentration 4 mg / 250 mL D5W; Recommended max rate 2 mcg/kg/min; Titrate 0.01 mcg/kg/min as often as every 3 minutes to achieve goal [see titration policy]; Goal parameter MAP greater than 65 mmHg. ordered. ms3 23:21 19:32 ms3 lg3 23:22 23:21 5- lg3 lg3
[2023-10-04 19:43] LABS: Specific Gravity 1.006 (1.005-1.030); Urine Bacteria Loaded /HPF (<20); Urine Bilirubin NEGATIVE (Negative); Urine Blood 3+ (OVER) (Negative); Urine Clarity Extremely Turbid (Clear); Urine Color Light-Orange (Yellow); Urine Glucose NEGATIVE (Negative); Urine Protein 1+ (Negative); Urine RBC >50 /HPF (None Seen); Urine Urobilinogen Normal (Normal); Urine WBC Clump Many /HPF (None Seen)
--- NOTE | 2023-10-04 20:04 | RAD REPORT ---
EXAM DESCRIPTION: US - Abdomen Exam Limited - 10/04/2023 7:50 pm CLINICAL HISTORY: ABD PAIN COMPARISON: Abdomen Pelvis Wo Contrast dated 10/04/2023 FINDINGS: The gallbladder demonstrates shadowing gallstones. The gallbladder wall is thickened with striations measuring up to 7 millimeters . The common bile duct is normal measuring 5 mm. No sonograp hic Barker's sign elicited . The liver demonstrates no findings of intrahepatic biliary dilatation. IMPRESSION: Cholelithiasis. Gallbladder wall thickening present which may be due to underlying liver disease or volume status rather than acute cholecystitis. Suggest correlating with LFTs.
[2023-10-04 21:33] LABS: Blood Morphology Comment NOTED (NOT SEEN); Hypochromasia 1+; Platelet Estimate ADEQ; White Blood Cell Scan OK (OK)
[2023-10-04] MEDS ORDERED: ONDANSETRON 4 MG/2 ML VIAL IV PRN (21:58)
[2023-10-04] MEDS ORDERED: EPINEPHRINE 1 MG/ML VIAL ONE (21:59)
[2023-10-04] MEDS: NA CHLORIDE 0.9% 1,000 ML IV SCH (22:00)
[2023-10-04] MEDS ORDERED: D5W 250 ML IV ONE (22:00)
--- NOTE | 2023-10-04 22:06 | P.HP ---
Certification for Inpatient Patient admitted to: Inpatient Practitioner: I am a practitioner with admitting privileges, knowledge of patient current condition, hospital course, and medical plan of care. Services: Services provided to patient in accordance with Admission requirements found in Title 42 Section 412.3 of the Code of Federal Regulations Patient History Date of Service: 10/05/23 Reason for admission: Sepsis, UTI, shock. History of Present Illness: 64-year-old male patient with medical history significant for hypertension, hyperlipidemia, history of severe cerebrovascular accident with severe neurologic deficit of aphasia. He was brought to the ED because of altered mentation. In the ED labs done showed elevated lactic acid, very low blood pressure and severely deranged UA concerning for UTI. He was started on empiric antibiotic therapy IV fluid as per sepsis protocol and also had a central line placed with administration of vasopressors due to his severe refractory shock. He was admitted for inpatient care in the ICU. As per history given by family member, patient had a cerebrovascular accident 2 years prior and needed dialysis at that time. He was admitted to LT and was later transferred to [facility] for continuity of care in a intermediate. No recent issues with fever, chills, rigor, nausea, vomiting. Allergies No Known Allergies Allergy (Unverified 10/04/23 17:21) Home Medications: Acetaminophen [Tylenol] 2 tab PO Q8HP PRN 10/05/23 Amlodipine [Norvasc] 10 mg PO DAILY 10/05/23 Atorvastatin Calcium [Lipitor] 40 mg PO BEDTIME 10/05/23 Azelastine HCl 2 puff NS BID 10/05/23 Carvedilol [Coreg] 25 mg PO Q12H 10/05/23 Cetirizine HCl [Zyrtec] 5 mg PO DAILY 10/05/23 Empagliflozin [Jardiance] 10 mg PO DAILY 10/05/23 Epoetin [Retacrit] 10,000 unit IM SEECOM 10/05/23 Ferrous Sulfate 325 mg PO BID 10/05/23 Hum Insulin NPH/Reg Insulin Hm [Humulin 70-30 Vial] 11 unit SQ BID 10/05/23 Hydralazine HCl 50 mg PO TID 10/05/23 Insulin Lispro [Humalog] See Rx Instructions .ROUTE .COMPLEX 10/05/23 Mag Hydrox/Al Hydrox/Simeth [Maalox Suspension] 20 ml PO Q6HP PRN 10/05/23 Meclizine HCl 25 mg PO Q12HP PRN 10/05/23 Metoclopramide [Reglan] 5 mg PO QID 10/05/23 [place]-3 Fatty Acids [[place]-3] 2 cap PO BID 10/05/23 Omeprazole 20 mg PO BID 10/05/23 Ondansetron [Zofran] 8 mg PO Q8HP PRN 10/05/23 Phenol [Chloraseptic] 1 spray Q2HP PRN 10/05/23 Polyethylene Glycol 3350 [Miralax] 1 pkt PO DAILY 10/05/23 Promethazine Suppos [Phenergan] 25 mg RC Q8HP PRN 10/05/23 Sodium Bicarbonate 325 mg PO Q6H 10/05/23 Sodium Zirconium Cyclosilicate [Lokelma] 5 gm PO DAILY 10/05/23 Tamsulosin [Flomax] 0.4 mg PO DAILY 10/05/23 Travoprost [Travatan Z*] 1 gtt OP DAILY 10/05/23 methocarbamoL [Methocarbamol] 500 mg PO TID 10/05/23 - Family History Mother -: Hypertension, Diabetes Review of Systems General: Weakness, Malaise Eyes: Unremarkable ENT: Unremarkable Cardiovascular: Unremarkable Gastrointestinal: Unremarkable Genitourinary: Unremarkable Musculoskeletal: Unremarkable Integumentary: Unremarkable Neurological: Unremarkable Lymphatics: Unremarkable Physical Examination - Physical Exam General: Alert HEENT: Atraumatic Neck: Supple Respiratory: Normal air movement Cardiovascular: Normal S1 S2 Gastrointestinal: Soft and benign Musculoskeletal: No swelling - Studies Laboratory Data (last 24 hrs) 10/04/23 10/04/23 10/04/23 16:51 16:51 16:51 WBC 7.70 Hgb 6.8 L Hct 19.6 L Plt Count 208 PT 13.7 H INR 1.25 APTT 32.5 Sodium 136 Potassium 3.0 L BUN 53 H Creatinine 4.43 H Glucose 111 H Total Bilirubin 0.6 AST 11 L ALT 11 L Alkaline Phosphatase 107 Assessment and Plan - Plan Septic shock: Present on admission. Evidenced by elevated lactic acid and hypotension. Source is deemed urinary tract infection. Patient does have significantly elevated creatinine of 4. There is suspicion for septic GN versus ischemic ATN from hypotension and underlying sepsis. Empiric antibiotic therapy with Rocephin has been started. IV fluid with vasopressor support has been started. We will maintain the mean Ethril pressure of 65 mmHg or more for adequate vital organ perfusion. Will follow trend of vitals closely. UTI: UA is very concerning. Urine cultures obtained. Will continue antibiotic therapy pending finalization. History of cerebrovascular accident with neurologic deficit: Patient is aphasic. Follow clinical symptomatology and continue supportive care. Acute kidney injury on suspected chronic kidney disease: Elevated creatinine noted at 4. Will continue IV antibiotic therapy, IV fluid for blood pressure support and hydration. Will have nephrology consulted as needed. Prophylaxis: Heparin for DVT prophylaxis CODE STATUS: Full code Disposition: We will treat patient's underlying septic condition, urinary tract infection and he will be discharged once deemed clinically stable. Discharge Plan: Longterm - Advance Directives Does patient have a Living Will: No Does patient have a Durable POA for Healthcare: No
[2023-10-05 00:01] LABS: Absolute Lymphocytes (CBC) 0.4 K/uL (0.7-4.9); Basophils % 0.1 % (0-1.3); Eosinophils % 0.1 % (0-4.4); Hematocrit 32.2 % (39.6-49.0); Hemoglobin 10.6 g/dL (13.6-17.9); Lymphocytes % 1.1 % (15.3-44.8); MCV 88.4 fL (80-100); MPV 7.7 fL (7.6-11.3); Platelets 188 thou/uL (152-406); RBC Red Blood Cell Count 3.64 M/uL (4.33-5.43)
[2023-10-05] MEDS: NOREPINEPHRINE BITARTRATE/D5W 4 MG/250 ML BAG IV ONE ×3 (00:19→05:19)
[2023-10-05] MEDS: NOREPINEPHRINE 4 MG in D5W 250 ML IV SCH (00:20)
[2023-10-05 00:34] LABS: Albumin/Globulin Ratio 0.5 (1.1-1.8); Anion Gap 18.5 mEq/L (5.0-15.0); Bilirubin Total 1.2 mg/dL (0.2-1.0); Globulin 4.1 g/dL (2.3-3.5); Potassium 3.5 mEq/L (3.5-5.1); Protein, Total 6.1 g/dL (6.4-8.2)
[2023-10-05 01:16] LABS: Absolute Lymphocytes (CBC) 0.3 K/uL (0.7-4.9); Eosinophils % 0.1 % (0-4.4); Hematocrit 29.4 % (39.6-49.0); Hemoglobin 9.7 g/dL (13.6-17.9); Lymphocytes % 0.7 % (15.3-44.8); MCV 88.5 fL (80-100); MPV 7.8 fL (7.6-11.3); Platelets 180 thou/uL (152-406); RBC Red Blood Cell Count 3.32 M/uL (4.33-5.43)
[2023-10-05] MEDS: EPINEPHRINE 1 MG/ML VIAL ONE ×3 (01:51→05:15)
[2023-10-05] MEDS: D5W 250 ML IV ONE ×2 (01:52→05:18)
[2023-10-05] MEDS ORDERED: ACETAMINOPHEN 500 MG TAB ONE (02:13)
[2023-10-05] MEDS: ACETAMINOPHEN 500 MG TAB PO PRN (02:15)
[2023-10-05] MEDS ORDERED: NOREPINEPHRINE 4 MG in D5W 250 ML IV SCH (03:00)
[2023-10-05] MEDS ORDERED: VANCOMYCIN 1 GM in NA CHLORIDE 0.9% 250 ML IVPB SCH (05:00)
[2023-10-05 06:46] LABS: Absolute Basophils 0.1 K/uL (0-0.5); Absolute Lymphocytes (CBC) 0.4 K/uL (0.7-4.9); Basophils % 0.3 % (0-1.3); Hematocrit 26.6 % (39.6-49.0); Hemoglobin 8.8 g/dL (13.6-17.9); Lymphocytes % 0.9 % (15.3-44.8); MCV 87.8 fL (80-100); MPV 8.1 fL (7.6-11.3); Platelets 137 thou/uL (152-406); RBC Red Blood Cell Count 3.03 M/uL (4.33-5.43)
[2023-10-05 06:58] LABS: Albumin 1.8 g/dL (3.4-5.0); Albumin/Globulin Ratio 0.5 (1.1-1.8); Anion Gap 17.3 mEq/L (5.0-15.0); Bilirubin Total 0.6 mg/dL (0.2-1.0); Globulin 3.9 g/dL (2.3-3.5); Potassium 3.3 mEq/L (3.5-5.1); Protein, Total 5.7 g/dL (6.4-8.2)
[2023-10-05] MEDS ORDERED: GLUCAGON 1 MG/VIAL IM PRN ×2 (08:05→12:04)
[2023-10-05] MEDS ORDERED: D50W 25 GM/50 ML SYRINGE IV PRN ×2 (08:05→12:04)
[2023-10-05] MEDS: NOREPINEPHRINE 16 MG in D5W 250 ML IV SCH (08:11)
[2023-10-05] MEDS: VANCOMYCIN 1.5 GM in NA CHLORIDE 0.9% 500 ML IVPB SCH (08:12)
[2023-10-05 08:23] LABS: Blood Morphology Comment NOT SEEN (NOT SEEN); Dohle Bodies PRESENT; Eosinophils 11 % (0-3); Platelet Estimate ADEQ; Toxic Granulation PRESENT
[2023-10-05] MEDS: NA CHLORIDE 0.9% 500 ML IV ONE (08:30)
[2023-10-05] MEDS ORDERED: INSULIN 70/30 100 UNITS/ML SQ ONE ×2 (08:59→16:58)
[2023-10-05] MEDS ORDERED: ENOXAPARIN 30 MG/0.3 ML SQ SCH (09:00)
[2023-10-05] MEDS: INSULIN 70/30 100 UNITS/ML SQ SCH (09:00)
[2023-10-05] MEDS: HEPARIN 5000 UNIT/ML 1 ML VIAL SQ SCH (09:02)
[2023-10-05] MEDS ORDERED: MAGNES/ALUMIN/SIMET 30ML UCUP PO PRN (09:25)
[2023-10-05] MEDS ORDERED: ONDANSETRON 4 MG (ODT) TAB PO PRN (09:25)
[2023-10-05] MEDS ORDERED: EPOETIN IM SCH (09:30)
--- NOTE | 2023-10-05 09:35 | P.PN ---
Subjective Date of Service: 10/05/23 (Hospitalist) Chief Complaint: Sepsis, UTI, shock. Subjective: Improving (Patient is improving his [facility] care resident's had a stroke involving the left side has been doing well was having nausea vomiting came in with septic shock) Review of Systems is unable to be obtained Physical Examination - Vital Signs Temperature: 99.6 F Blood Pressure: 78/53 Pulse: 76 Respirations: 18 Pulse Ox (%): 100 - Physical Exam General: Alert, Cooperative Respiratory: Clear to auscultation bilaterally, Diminished Cardiovascular: No edema, Regular rate/rhythm, Normal S1 S2 - Studies Laboratory Data (last 24 hrs) 10/04/23 10/04/23 10/04/23 16:51 16:51 16:51 WBC 7.70 Hgb 6.8 L Hct 19.6 L Plt Count 208 PT 13.7 H INR 1.25 APTT 32.5 Sodium 136 Potassium 3.0 L BUN 53 H Creatinine 4.43 H Glucose 111 H Total Bilirubin 0.6 AST 11 L ALT 11 L Alkaline Phosphatase 107 Assessment And Plan - Current Problems (Diagnosis) (1) Septic shock Current Visit: Yes Status: Acute Plan: Patient has septic shock lactic acid is elevated hypotensive on vasopressors presumed acute on chronic renal failure and to continue with IV antibiotics urinalysis shows gram-negative rods continue with vancomycin and cefepime urinalysis is very abnormal suggestive of an infection chest x-ray is clear (2) Acute on chronic renal failure Current Visit: Yes Status: Acute Plan: Consult nephrology another bolus of IV fluids Qualifiers: Chronic kidney disease stage: stage 4 (severe) (3) Hyperglycemia Current Visit: Yes Status: Acute (4) Hydronephrosis Current Visit: Yes Status: Acute Plan: Patient has bilateral hydronephrosis/patient has a Eldridge catheter in place IMPRESSION: 1. Distended bladder which is thickened with bilateral hydroureteronephrosis concerning for acute urinary retention. Eldridge catheter has been placed though the bladder remains distended. Perivesical stranding may reflect cystitis. 2. Cholelithiasis with gallbladder wall thickening. This could reflect acute cholecystitis in the appropriate clinical setting. 3. Fluid present within the distal esophagus may reflect gastroesophageal reflux and could predispose to aspiration. The patient has a gastrostomy tube patient has a history of Eldridge catheter need a urology consult Qualifiers: Hydronephrosis type: unspecified Qualified Code(s): N13.30 - Unspecified hydronephrosis - Plan Patient has a history of diabetes blood sugar is very elevated resume insulin
[2023-10-05] MEDS ORDERED: MECLIZINE HCL 12.5 MG TAB PO PRN (10:06)
[2023-10-05] MEDS ORDERED: TAMSULOSIN 0.4 MG SR CAP ONE (10:20)
[2023-10-05] MEDS: TAMSULOSIN 0.4 MG SR CAP PO SCH (11:03)
[2023-10-05] MEDS: SODIUM BICARB 325 MG TAB PO SCH (11:03)
[2023-10-05 12:30] LABS: Absolute Basophils 0.1 K/uL (0-0.5); Absolute Eosinophils 0.1 K/uL (0-0.5); Absolute Lymphocytes (CBC) 0.5 K/uL (0.7-4.9); Basophils % 0.1 % (0-1.3); Eosinophils % 0.2 % (0-4.4); Hematocrit 24.9 % (39.6-49.0); Hemoglobin 8.3 g/dL (13.6-17.9); Lymphocytes % 1.4 % (15.3-44.8); MCV 87.3 fL (80-100); MPV 8.7 fL (7.6-11.3); Platelets 94 thou/uL (152-406); RBC Red Blood Cell Count 2.85 M/uL (4.33-5.43)
[2023-10-05 12:32] LABS: Albumin 1.7 g/dL (3.4-5.0); Anion Gap 15.5 mEq/L (5.0-15.0); Potassium 3.5 mEq/L (3.5-5.1)
--- NOTE | 2023-10-05 12:39 | CON ---
Date of Consultation: 10/05/2023 Subjective: The patient seen in ICU room 1, which is currently in the emergency room where ICU is be ing situated while temporary reconstruction is going on. The patient is alert, but unable to give an swers or communicate properly or recall anything, question expressive aphasia. He does not seem to k now where he is. He does seem to speak, but his speech is not making sense. Blood pressure has been running on the lower side, was earlier about 70 systolic, now is up to 90-100 range. The patient is currently on epinephrine and also norepinephrine. He is getting about 0.4 of both and his blood pre ssures are running between 90-100 currently. His respirations are around 14-18. His pulse is 70 to 80 and he is alert. His lab work is somewhat confusing where the initial lab work showed a WBC count of about 7.7, the repeat was 39,000 just 3 hours after that. Also, his hemoglobin was 6.8 and the r epeat was 8.8. His sodium was 136, repeat was 131, potassium was 3 and repeat was 3.3. I suspect th at his blood work could be incorrect either the first one or the second one. Discussed with the nurs ing staff to see if this can be repeated. The patient does not have any edema. Lungs are clear. He seems to have dry skin and seems to be slightly volume depleted. He does not follow commands. He i s not moving his left extremity upper and lower. Talking to the family he has a history of stroke on the left side. Minimum information is gotten from the patient due to his expressive aphasia. The p atient's information is mainly gotten from the chart. Allergies: HISTORY OF NO ALLERGIES. NKDA. Family History: Noncontributory. Social History: The patient does seem to live in a skilled nursing. Lab Data: Reviewed. The patient's labs as stated seem to be confusing as the labs done a few hours later from the one in the morning showed significantly different WBC, so repeat lab work is pending. His potassium is low, will need replacement. Medications: The patient's medications in the chart reviewed. Currently on antibiotics, on pressors . Blood pressure seems to be improved. Assessment And Plan: Urinary tract infection, question sepsis, question acute kidney injury with chr onic kidney disease stage 3/4. At this point, the patient's creatinine elevated to the 4 range. We will need to reassess chronic kidney disease and residual renal function once acute issues are resolv ed. Agree with antibiotics. Agree with volume repletion. Please check CBC, BMP again. Discussed w ith the nurse. Already the orders have been placed. I will plan on correcting electrolytes as neede d based on repeat lab work. Currently, the patient does seem to be stabilizing with IV fluids and wi th antibiotics, but condition still seems guarded. Appreciate consultation. /CHANEL Voice ID: [id number] Report ID: [id number]
[2023-10-05] MEDS: INSULIN REGULAR (HUMAN) 100 UNIT/ML SQ SCH (13:00)
[2023-10-05] MEDS: METOCLOPRAMIDE 5 MG TAB PO SCH (13:00)
[2023-10-05] MEDS ORDERED: INSULIN REGULAR (HUMAN) 100 UNIT/ML ONE ×2 (13:06→16:59)
--- NOTE | 2023-10-05 13:14 | RAD REPORT ---
EXAM DESCRIPTION: RAD - Chest Single View - 10/05/2023 1:01 pm CLINICAL HISTORY: RO aspiration pneumonia COMPARISON: Chest Single View dated 10/04/2023; Chest Single View dated 09/30/2023; Chest Single View da akshat 08/07/2023; Abdomen Pelvis Wo Contrast dated 10/04/2023 FINDINGS: Lines: Right IJ approach central venous line with tip overlying the SVC. Lungs: Increased prominence of the pulmonary vasculature. There is some hazy right upper lobe opaciti es developing as well. Pleural: No significant pleural effusions or pneumothorax. Cardiac: Similar size and configuration. Mediastinum: Within normal limits. Bones: No acute fractures. Other: None IMPRESSION: Subtle airspace disease in the right upper lobe could reflect mild aspiration. Nonspecif ic increased prominence of the pulmonary interstitium but without jacquelyn pulmonary edema.
--- NOTE | 2023-10-05 13:41 | CON ---
Date of Consultation: 10/04/2023 Reason For Service: Patient is septic and they want to rule out GI as part of it. I saw this patien t in the ICU. At this moment, he has been on vasoconstrictors, hypotensive and they brought me julio lenchoy to the ER. History Of Present Illness: This is a case of a 63-year-old patient who comes to us with , hyperlipidemia, hypovolemia, septic shock, history of CVAs, history of severe neurological aphasia. He comes with aseptic picture and Dr. Ingram asked me to see the patient as part of the rule out gal lbladder since the radiologist was not sure if there is just swelling from normal tissue or anything else, so I saw the patient. Obviously, at that moment, he just got inserted a Eldridge catheter. When he came out, there was some thick purulent like fluid coming out of the Eldridge, which once again creat ed the possibility of urosepsis and in that case still, I have seen the patient from the GI standpoin t. I cannot get much information from him. He is awake, alert, but once again he has history of CVA , severe neurological aphasia. He responded to some commands and also to pain and that is why I was able to evaluate his abdomen. Allergies: NONE. Review of Systems: Unable to be obtained accurately, although he does not claim about any abdominal pain. Medications: Reviewed. Family History: Diabetes. Past Surgical History: Unknown. Physical Examination: General: The patient is alert. HEENT: Pupils are reactive. Neck: Supple. Abdomen: Soft and depressible. There is no guarding, no rebound, and no Barker sign specifically of the epigastric and upper quadrant area. No tenderness and no movement of his eyes or any reaction w hen I pressed that region. Extremities: Good capillary refill. Laboratory Data: Blood work shows a WBC count of 7.7 and hemoglobin of 6.8 and platelets of 208. IN R was 1.25. The chemistry shows sodium is 130. Total bilirubin is normal 0.6. AST, ALT, and alkali ne phosphatase with no elevation. The patient had an ultrasound and CAT scan of the abdomen interpre akshat by Dr. Desai as distended urinary bladder with thickening and bilateral hydroureteronephrosis peter rning for acute urinary retention. Eldridge catheter has been placed. Once again that goes with those findings of very thick urine coming out, foul smelling. There is some cholelithiasis and there is so me gallbladder thickening, but they believe have to be related clinically and clinically. He does no t have any pain in that region. The patient had a gastrostomy tube in place. Ultrasound also interp reted by Dr. Desai once again shows cholelithiasis and the gallbladder thickening was most specific. I t may be due to underlying disease or volume status rather than cholecystitis and thus what they desc ribed, correlate with the LFTs, but LFTs in this moment are not elevated. Assessment: This is a 63-year-old patient with septic shock and has a Eldridge catheter with foul smell ing urine and abundant of evidence of that CAT scan that may be related to the urinary tract infectio n, which may not be help in this case. I suggest Urology evaluation and also Infectious Disease to b sadaf in this case. From the surgical standpoint, we are going to continue watching him from the gallbla dder standpoint, although we do not predict any surgery to be done at this moment. SAMIA/CHANEL Voice ID: [id number] Report ID: [id number]
[2023-10-05] MEDS ORDERED: PROMETHAZINE 25 MG/SUPP PR PRN (14:42)
[2023-10-05] MEDS: KCL 20 MEQ/100 mL IVPB 20 MEQ/100 ML BAG IV ONE (17:01)
[2023-10-05] MEDS: WATER IV SCH (18:03)
[2023-10-05] MEDS: NOREPINEPHRINE IV SCH (18:03)
[2023-10-05] MEDS: DEXTROSE 5% IV SCH (18:03)
[2023-10-05] MEDS ORDERED: METOCLOPRAMIDE 5 MG TAB ONE (20:25)
[2023-10-05] MEDS: CEFEPIME 1 GM in NA CHLORIDE 0.9% 100 ML IV SCH (20:31)
[2023-10-06] MEDS: D10W 125 ML IV PRN (04:34)
[2023-10-06 05:20] LABS: Absolute Eosinophils 0.3 K/uL (0-0.5); Absolute Lymphocytes (CBC) 0.9 K/uL (0.7-4.9); Basophils % 0.1 % (0-1.3); Hematocrit 25.9 % (39.6-49.0); Hemoglobin 8.6 g/dL (13.6-17.9); Lymphocytes % 2.6 % (15.3-44.8); MCV 86.4 fL (80-100); MPV 8.4 fL (7.6-11.3); Platelets 53 thou/uL (152-406)
[2023-10-06 05:42] LABS: Albumin 1.8 g/dL (3.4-5.0); Albumin/Globulin Ratio 0.5 (1.1-1.8); Anion Gap 12.5 mEq/L (5.0-15.0); Bilirubin Total 0.7 mg/dL (0.2-1.0); Globulin 3.9 g/dL (2.3-3.5); Potassium 4.5 mEq/L (3.5-5.1); Protein, Total 5.7 g/dL (6.4-8.2)
[2023-10-06 05:58] LABS: Blood Morphology Comment NOT SEEN (NOT SEEN); Platelet Estimate DECR; Platelets, Giant PRESENT; White Blood Cell Scan OK (OK)
[2023-10-06 06:03] VITALS: BMI 28.4
[2023-10-06] MEDS ORDERED: ACETAMINOPHEN 500 MG TAB ONE (08:18)
[2023-10-06] MEDS: POLYETHYL GLY 3350 17 GM/DOSE PO SCH (08:20)
[2023-10-06] MEDS: TRAVOPROST OPTH SCH (08:27)
[2023-10-06] MEDS: CEFTAZIDIME 2 GM in NA CHLORIDE 0.9% 100 ML IV SCH (08:42)
[2023-10-06] MEDS ORDERED: NA CHLORIDE 0.9% 1,000 ML ONE (08:43)
[2023-10-06] MEDS ORDERED: CEFTAZIDIME 1 GM VIAL IV SCH (09:00)
[2023-10-06] MEDS ORDERED: HOME MED 1 EA UNK (Sodium Zirconium Cyclosilicate [Lokelma] 5 GM Powd.Pack) PO SCH (09:00)
--- NOTE | 2023-10-06 09:11 | RAD REPORT ---
EXAM DESCRIPTION: RAD - Chest Single View - 10/06/2023 5:27 am CLINICAL HISTORY: desaturations COMPARISON: Chest Single View dated 10/05/2023; Chest Single View dated 10/04/2023; Chest Single View da akshat 09/30/2023; Chest Single View dated 08/07/2023 FINDINGS: Lines: Right IJ approach central line tip overlying SVC . Lungs: Worsened airspace disease, left greater than right. There is developing consolidation in the l eft lower lobe. Pleural: Possible new small left pleural effusion. Cardiac: The heart size is within normal limits. Mediastinum: Within normal limits. Bones: No acute fractures. Other: None IMPRESSION: Worsening airspace disease, left greater than right, which could reflect atelectasis and /or aspiration.
--- NOTE | 2023-10-06 09:50 | P.PN ---
Subjective Date of Service: 10/06/23 (Hospitalist) Chief Complaint: Sepsis, UTI, shock. No change in patient's condition he has altered mental status delirious patient was made DNR as per family members request yesterday Review of Systems is unable to be obtained Physical Examination - Vital Signs Temperature: 97.4 F Blood Pressure: 109/67 Pulse: 80 Respirations: 18 Pulse Ox (%): 92 - Physical Exam General: Delirious, Unresponsive Neck: Supple Respiratory: Clear to auscultation bilaterally Cardiovascular: No edema, Regular rate/rhythm Assessment And Plan - Current Problems (Diagnosis) (1) Septic shock Current Visit: Yes Status: Acute Plan: Patient is 63 years of age admitted with septic shock I suspect is secondary to 20 tract infection he also has hydronephrosis nephrology consulted cultures urine cultures all positive probably dentia isolated changed to Fortaz white count is slightly lower according to the sister's wishes he was made DNR patient has expressive dysphagia from his stroke patient is still in septic shock is requiring vasopressor patient's PEG tube is not working is clogged plan to insert a Dobbhoff and start feeding patient has bilateral hydronephrosis Dr. Teresa has been notified sent him a text message will DC vancomycin for now antibiotic was changed to Fortaz as per sensitivity (2) Acute on chronic renal failure Current Visit: Yes Status: Acute Plan: Patient's renal function is worse Qualifiers: Chronic kidney disease stage: stage 4 (severe) (3) Hyperglycemia Current Visit: Yes Status: Acute (4) Hydronephrosis Current Visit: Yes Status: Acute Plan: Patient has bilateral hydronephrosis/patient has a Eldridge catheter in place IMPRESSION: 1. Distended bladder which is thickened with bilateral hydroureteronephrosis concerning for acute urinary retention. Eldridge catheter has been placed though the bladder remains distended. Perivesical stranding may reflect cystitis. 2. Cholelithiasis with gallbladder wall thickening. This could reflect acute cholecystitis in the appropriate clinical setting. 3. Fluid present within the distal esophagus may reflect gastroesophageal reflux and could predispose to aspiration. The patient has a gastrostomy tube patient has a history of Eldridge catheter need a urology consult Qualifiers: Hydronephrosis type: unspecified Qualified Code(s): N13.30 - Unspecified hydronephrosis - Plan Patient has a history of diabetes blood sugar is very elevated resume insulin
[2023-10-06] MEDS ORDERED: DEXMEDETOMIDINE HCL 200 MCG in NA CHLORIDE 0.9% 98 ML IV SCH (12:00)
[2023-10-06] MEDS: DEXMEDETOMIDINE HCL 1,000 MCG in NA CHLORIDE 0.9% 490 ML IV SCH (12:00)
--- NOTE | 2023-10-06 12:12 | RAD REPORT ---
EXAM DESCRIPTION: RAD - Abdomen 1 View (KUB) - 10/06/2023 11:23 am CLINICAL HISTORY: Device placement Dobhoff tube placement FINDINGS: The initial film demonstrates the tip of the Dobhoff tube within the proximal stomach. The most recent x-ray demonstrates the Dobhoff tube has been advanced into the junction of the second and third portions duodenum
[2023-10-06] MEDS: INSULIN 70/30 100 UNITS/ML SQ SCH (16:30)
[2023-10-06] MEDS ORDERED: D50W 25 GM/50 ML SYRINGE IV PRN (19:21)
[2023-10-06] MEDS ORDERED: D10W 125 ML IV PRN (19:29)
[2023-10-06] MEDS ORDERED: GLUCERNA 1.5 CAL 1,000 ML BOT FT SCH (20:00)
[2023-10-07] MEDS ORDERED: INSULIN REGULAR (HUMAN) 100 UNIT/ML ONE (00:05)
[2023-10-07] MEDS: INSULIN REGULAR (HUMAN) 100 UNIT/ML SQ SCH (00:07)
[2023-10-07 04:43] VITALS: TEMP 96.8
--- NOTE | 2023-10-07 09:05 | P.PN ---
Brief Renal note: Pt's condition deteriorated overnight per MATLAB DEVELOPER reports, this AM as I entered the room, I was informed by nursing staff present that pt had been bradycardic, hypotensive and was actively dying. In my brief assessment, pt was in his final moments with some intermittent HR activity still seen on the monitor while on Levophed. Given DNR in place, no further interventions were taken. Pt had presented with urosepsis with [place] in blood and urine cultures. Pt has had advanced CKD for some time but no emergent indication for DIRECTOR OF PHILANTHROPY was deemed Sat by Dr. Marley who saw him for consultation with obstructive uropathy findings and it is unlikely that dialysis initiation would have changed the trajectory in this chronically ill NH pt. Family members at bedside, case discussed briefly and condolences offered. Broderick Weiner MD, SRAVAN
[2023-10-07 09:19] VITALS: BP 125/75
[2023-10-07 09:51] VITALS: O2SAT 90
[2023-10-07] MEDS ORDERED: Calcium Chloride 10% INJ SYR IV ONE (11:49)
== END 2023-10-07 11:50 | disposition expired | DRG 871 ==
LOC: ER 16:39 → ERHOLD 21:52 → 3RD-ICU 23:25
PROVIDERS: ADMIT Internal Medicine Nephrology; ATTEND Hospitalist
PROC: 30233N1 Transfusion of Nonautologous Red Blood Cells into Peripheral Vein, Percutaneous Approach (ICD-10-PCS; principal; 2023-10-04)
PROC: 3E033XZ Introduction of Vasopressor into Peripheral Vein, Percutaneous Approach (ICD-10-PCS; 2023-10-04)
PROC: 0T9B70Z Drainage of Bladder with Drainage Device, Via Natural or Artificial Opening (ICD-10-PCS; 2023-10-04)
PROC: 5A12012 Performance of Cardiac Output, Single, Manual (ICD-10-PCS; 2023-10-05)
PROC: 5A09357 Assistance with Respiratory Ventilation, Less than 24 Consecutive Hours, Continuous Positive Airway Pressure (ICD-10-PCS; 2023-10-06)
DX: A41.9 Sepsis, unspecified organism (principal); R65.21 Severe sepsis with septic shock; N17.9 Acute kidney failure, unspecified; N18.4 Chronic kidney disease, stage 4 (severe); N13.6 Pyonephrosis; I12.9 Hypertensive chronic kidney disease with stage 1 through stage 4 chronic kidney disease, or unspecified chronic kidney disease; E11.22 Type 2 diabetes mellitus with diabetic chronic kidney disease; E11.40 Type 2 diabetes mellitus with diabetic neuropathy, unspecified; E11.65 Type 2 diabetes mellitus with hyperglycemia; D63.1 Anemia in chronic kidney disease; E78.5 Hyperlipidemia, unspecified; E87.6 Hypokalemia; N40.0 Benign prostatic hyperplasia without lower urinary tract symptoms; I69.320 Aphasia following cerebral infarction; I69.391 Dysphagia following cerebral infarction; R13.10 Dysphagia, unspecified; R00.1 Bradycardia, unspecified; Z66 Do not resuscitate; Z79.4 Long term (current) use of insulin; Z79.02 Long term (current) use of antithrombotics/antiplatelets; Z79.899 Other long term (current) drug therapy
CPT/HCPCS: 36415; 51702; 70450; 71045; 74018; 74176; 76705; 80048; 80053; 81001; 82040; 82947; 83605; 84484; 85025; 85610; 85730; 86850; 86900; 86901; 86920; 87040; 87077; 87086; 87088; 87186; 87205; 94660; 99291; 99292; J0171; J0692; J0713; J1644; J1720; J1815; J2405; J3480; J7030; J7040; J7050; J7060; J8597; P9016